=== PATIENT | male | born 1975 | race Caucasian/White ===

== ENCOUNTER 2016-09-03 19:40 | Emergency (ER) | payer OTHER ==
[2016-09-03] MEDS ORDERED: NORMAL SALINE INJ/PF 0.9% 10 ML SDV IV ONE (20:28)
[2016-09-03] MEDS ORDERED: HYOSCYAMINE SULFATE 0.125 MG TABLET PO ONE (20:28)
--- NOTE | 2016-09-03 20:28 | ER Document Report ---
ED Medical Screen (RME) - General Stated Complaint: ABDOMINAL PAIN Notes: Right upper quadrant pain increases after food. He'll another hospital about 6 weeks ago and was told that he had gallbladder disease and needed to follow-up with the surgeon and has been working on obtaining that. I greeted and performed a rapid initial assessment of this patient. Comprehensive ED assessment and evaluation of the patient, analysis of test results and completion of the medical decision making process will be conducted by additional ED providers. TRAVEL OUTSIDE OF THE [place] IN LAST 30 DAYS: No - Related Data Allergies/Adverse Reactions: lidocaine [Lidocaine] Allergy (Verified 03/29/12 15:00) procaine HCl [From Novocain] Allergy (Verified 03/29/12 15:00) Past Medical History Neurological Medical History: Reports: Hx Migraine Past Surgical History: Reports: Hx Orthopedic Surgery - right knee - Immunizations Hx Diphtheria, Pertussis, Tetanus Vaccination: Yes
[2016-09-03 21:32] LABS: ABSOLUTE BASOPHILS # (AUTO) 0.1 10^3/uL (0.0-0.2); ABSOLUTE EOSINOPHILS # (AUTO) 0.3 10^3/uL (0.0-0.6); ABSOLUTE LYMPHOCYTES (AUTO) 2.6 10^3/uL (0.5-4.7); ABSOLUTE MONOCYTES (AUTO) 1.2 10^3/uL (0.1-1.4); ABSOLUTE NEUT (AUTO) 9.1 10^3/uL (1.7-8.2); BASOPHILS % (AUTO) 0.5 % (0-2); EOSINOPHILS % (AUTO) 2.2 % (0-6); HEMATOCRIT 47.5 % (37.9-51.0); HEMOGLOBIN 15.3 g/dL (13.5-17.0); HGB HCT DIFFERENCE -1.6; LYMPHOCYTES % (AUTO) 19.5 % (13-45); MEAN CORPUSCULAR HEMOGLOBIN 27.6 pg (27.0-33.4); MEAN CORPUSCULAR HGB CONC 32.3 g/dL (32.0-36.0); MEAN CORPUSCULAR VOLUME 85 fl (80-97); MONOCYTES % (AUTO) 9.3 % (3-13); RED BLOOD COUNT 5.56 10^6/uL (4.35-5.55); RED CELL DISTRIBUTION WIDTH 14.2 % (11.5-14.0); SEGMENTED NEUTROPHILS % (AUTO) 68.5 % (42-78); WHITE BLOOD COUNT 13.4 10^3/uL (4.0-10.5)
[2016-09-03 21:55] LABS: ALANINE AMINOTRANSFERASE 36 U/L (21-72); ALBUMIN 4.3 g/dL (3.5-5.0); ALKALINE PHOSPHATASE 90 U/L (38-126); ANION GAP 11 (5-19); ASPARTATE AMINO TRANSFERASE 20 U/L (17-59); BILIRUBIN,TOTAL 0.7 mg/dL (0.2-1.3); BLOOD UREA NITROGEN 10 mg/dL (7-20); CALCIUM 9.3 mg/dL (8.4-10.2); CARBON DIOXIDE 28 mmol/L (22-30); CHLORIDE 102 mmol/L (98-107); CREATININE RESULT 0.98 mg/dL (0.52-1.25); GLUCOSE 73 mg/dL (75-110); LIPASE 18.1 U/L (23-300); POTASSIUM 4.6 mmol/L (3.6-5.0); SODIUM 140.6 mmol/L (137-145); TOTAL PROTEIN 7.2 g/dL (6.3-8.2)
[2016-09-03 23:33] LABS: APPEARANCE,URINE CLEAR; BILIRUBIN,URINE NEGATIVE (NEGATIVE); GLUCOSE, URINE NEGATIVE (NEGATIVE); KETONES,URINE NEGATIVE (NEGATIVE); LEUKOCYTE ESTERASE,URINE NEGATIVE (NEGATIVE); NITRITE,URINE NEGATIVE (NEGATIVE); PROTEIN,URINE NEGATIVE (NEGATIVE); UROBILINOGEN,URINE NEGATIVE mg/dL (<2.0)
--- NOTE | 2016-09-04 01:43 | ER Document Report ---
ED General - General Chief Complaint: Abdominal Pain Stated Complaint: ABDOMINAL PAIN Notes: Patient is a 40-year-old male with past mental history of morbid obesity and hypertension who presents with several months of ongoing right upper quadrant abdominal pain. Does described as intermittent, dull, aching pain. It has been gradually worsening since onset. Worsened by eating food. Nothing improves the pain. States that this pain has been evaluated by an outpatient general surgeon and treated to gallstones but he has not been able to be scheduled for a cholecystectomy. No history of similar symptoms in the past prior to the last 2 months. He denies any associated vomiting, chest pain or shortness of breath. Notes that he has intermittent nonbloody diarrhea. No prior history of abdominal surgeries. TRAVEL OUTSIDE OF THE [place] IN LAST 30 DAYS: No - Related Data Allergies/Adverse Reactions: lidocaine [Lidocaine] Allergy (Verified 03/29/12 15:00) procaine HCl [From Novocain] Allergy (Verified 03/29/12 15:00) Past Medical History - General Information source: Patient - Social History Smoking Status: Current Every Day Smoker Chew tobacco use (# tins/day): No Frequency of alcohol use: Rare Drug Abuse: None Family History: Reviewed & Not Pertinent Patient has suicidal ideation: No Neurological Medical History: Reports: Hx Migraine Renal/ Medical History: Denies: Hx Peritoneal Dialysis Past Surgical History: Reports: Hx Orthopedic Surgery - right knee - Immunizations Hx Diphtheria, Pertussis, Tetanus Vaccination: Yes Review of Systems - Review of Systems Notes: Constitutional: Negative for fever. HENT: Negative for sore throat. Eyes: Negative for visual changes. Cardiovascular: Negative for chest pain. Respiratory: Negative for shortness of breath. Gastrointestinal: Positive for abdominal pain and vomiting Genitourinary: Negative for dysuria. Musculoskeletal: Negative for back pain. Skin: Negative for rash. Neurological: Negative for headaches, weakness or numbness. 10 point ROS negative except as marked above and in HPI. Physical Exam - Vital signs Vitals: Temp Pulse Resp BP Pulse Ox 98.4 F 86 20 164/98 H 98 09/03/16 20:28 09/03/16 20:28 09/03/16 20:28 09/03/16 20:28 09/03/16 20:28 Interpretation: Hypertensive Notes: PHYSICAL EXAMINATION: GENERAL: Well-appearing, well-nourished and in no acute distress. HEAD: Atraumatic, normocephalic. EYES: Pupils equal round and reactive to light, extraocular movements intact, sclera anicteric, conjunctiva are normal. ENT: nares patent, oropharynx clear without exudates. Moist mucous membranes. NECK: Normal range of motion, supple without lymphadenopathy LUNGS: Breath sounds clear to auscultation bilaterally and equal. No wheezes rales or rhonchi. HEART: Regular rate and rhythm without murmurs ABDOMEN: Soft, mild right upper quadrant tenderness to palpation with negative Brown's, normoactive bowel sounds. No guarding, no rebound. No masses appreciated. EXTREMITIES: Normal range of motion, no pitting or edema. No cyanosis. NEUROLOGICAL: No focal neurological deficits. Moves all extremities spontaneously and on command. PSYCH: Normal mood, normal affect. SKIN: Warm, Dry, normal turgor, no rashes or lesions noted. Course - Re-evaluation Re-evalutation: 09/04/16 01:38 Patient presents clinical history and exam most consistent with symptomatic cholelithiasis. Patient has had progressive worsening of right upper quadrant pain worsened by eating but has been able to tolerate some oral intake. Vitals at time of arrival and on multiple reassessments remain non-concerning. Laboratories do not demonstrate a significant leukocytosis, LFT derangements, elevated bilirubin, alkaline phosphatase, or an elevated lipase. A right upper quadrant ultrasound does not demonstrate evidence of acute cholecystitis. This case was discussed with the surgeon cashier and salesperson who has agreed that outpatient follow-up is the most appropriate course of action at this time. Patient is unable to tolerate oral intake.At this time will discharge with return precautions and follow-up recommendations. Verbal discharge instructions given a the bedside and opportunity for questions given. Medication warnings reviewed. Patient is in agreement with this plan and has verbalized understanding of return precautions and the need for primary care follow-up in the next 24-72 hours. - Vital Signs Vital signs: Temp Pulse Resp BP Pulse Ox 98.4 F 86 20 164/98 H 98 09/03/16 20:28 09/03/16 20:28 09/03/16 20:28 09/03/16 20:28 09/03/16 20:28 - Laboratory Result Diagrams: 09/03/16 20:45 09/03/16 20:45 Laboratory results interpreted by me: 09/03/16 09/03/16 09/03/16 20:45 20:45 23:01 WBC 13.4 H RBC 5.56 H RDW 14.2 H Absolute Neutrophils 9.1 H Glucose 73 L Lipase 18.1 L Urine Blood SMALL H Discharge - Discharge Clinical Impression: Symptomatic cholelithiasis Condition: Good Disposition: HOME, SELF-CARE Additional Instructions: You were seen for pain in your abdomen that is likely related to gallstones. Your work-up today does not show any signs that you need to have your gallbladder removed tonight. However, you will likely need surgery as an outpatient in the coming weeks. Please contact the surgery clinic in the next 24 -48 hours to discuss the need for further evaluation and consideration of surgery. Return to the ED immediately if you develop worsening pain, persistent vomiting, become unable to tolerate fluids, have a fever of >1004, or any other symptoms that are concerning to you. Referrals: MADHURI BANKS MD [ACTIVE STAFF] - Follow up tomorrow
[2016-09-04 02:44] VITALS: BP 142/92
== END 2016-09-04 02:00 | disposition home or self-care (01) ==
LOC: ER 19:40
DX: K80.80 Other cholelithiasis without obstruction (principal); R10.11 Right upper quadrant pain; R11.11 Vomiting without nausea; F17.200 Nicotine dependence, unspecified, uncomplicated; E66.01 Morbid (severe) obesity due to excess calories
CPT/HCPCS: 99284; 96360; 36415; 83690; 85025; 80053; 81001; 74022; 76705; J3490 ×2

== ENCOUNTER 2016-10-25 12:47 | Day surgery (SDC) | payer OTHER ==
[2016-10-18 10:00] LABS: HEMATOCRIT 45.3 % (37.9-51.0); HEMOGLOBIN 15.2 g/dL (13.5-17.0); HGB HCT DIFFERENCE 0.3; MEAN CORPUSCULAR HEMOGLOBIN 28.1 pg (27.0-33.4); MEAN CORPUSCULAR HGB CONC 33.6 g/dL (32.0-36.0); MEAN CORPUSCULAR VOLUME 84 fl (80-97); WHITE BLOOD COUNT 10.2 10^3/uL (4.0-10.5)
[2016-10-18 10:27] LABS: ALANINE AMINOTRANSFERASE 44 U/L (21-72); ALBUMIN 4.1 g/dL (3.5-5.0); ALKALINE PHOSPHATASE 89 U/L (38-126); AMYLASE 30 U/L (30-110); ANION GAP 9 (5-19); ASPARTATE AMINO TRANSFERASE 23 U/L (17-59); BILIRUBIN,TOTAL 0.5 mg/dL (0.2-1.3); BLOOD UREA NITROGEN 12 mg/dL (7-20); CALCIUM 9.6 mg/dL (8.4-10.2); CARBON DIOXIDE 28 mmol/L (22-30); CHLORIDE 103 mmol/L (98-107); CREATININE RESULT 0.95 mg/dL (0.52-1.25); GLUCOSE 85 mg/dL (75-110); POTASSIUM 4.3 mmol/L (3.6-5.0); SODIUM 139.7 mmol/L (137-145); TOTAL PROTEIN 7.1 g/dL (6.3-8.2)
--- NOTE | 2016-10-19 11:12 | EKG REPORT ---
SEVERITY:- NORMAL ECG - SINUS RHYTHM : Confirmed by: Anna Jimenez 19-Oct-2016 11:12:10
[~2016-10-25 12:47] MED LIST: ACETAMINOPHEN 325 MG TABLET PO PRN; CEFAZOLIN 1 GM/D5W RTU 1 GM/50 ML RTUPB IV PRN; DEXAMETHASONE SOD PHOSPHATE INJ 4 MG/1 ML VIAL ONE; GLYCOPYRROLATE INJ 0.4 MG/2 ML VIAL ONE; LACTATED RINGERS 1000 ML IV PRN; ONDANSETRON HCL INJ/PF 4 MG/2 ML SDV ONE; SUCCINYLCHOLINE CHLORIDE INJ 200 MG/10 ML VIAL ONE
[2016-10-25] MEDS ORDERED: HYDROMORPHONE HCL INJ/PF 2 MG/ML AMPULE ONE (13:41)
[2016-10-25] MEDS ORDERED: FENTANYL CITRATE INJ/PF 100 MCG/2 ML AMPUL ONE ×3 (13:42)
[2016-10-25] MEDS ORDERED: MIDAZOLAM 2 MG/2 ML INJ ONE (13:42)
[2016-10-25] MEDS ORDERED: PROPOFOL INJ 200 MG/20 ML VIAL IV ONE (13:43)
[2016-10-25] MEDS ORDERED: EPHEDRINE SULFATE INJ 50 MG/1 ML AMPULE ONE (15:16)
[2016-10-25] MEDS ORDERED: DIPHENHYDRAMINE HCL 50 MG/ML VIAL IV PRN (15:36)
[2016-10-25] MEDS ORDERED: PROMETHAZINE HCL INJ 25 MG/1 ML VIAL IV PRN (15:36)
[2016-10-25] MEDS ORDERED: FENTANYL CITRATE INJ/PF 100 MCG/2 ML AMPUL IV PRN ×3 (15:36)
[2016-10-25] MEDS ORDERED: ACETAMINOPHEN 100 ML IV ONE (15:40)
--- NOTE | 2016-10-25 16:17 | Operative Report ---
Operative Report DATE OF SURGERY: 10/25/16 PREOPERATIVE DIAGNOSIS: Symptomatic cholelithiasis with cholecystitis POSTOPERATIVE DIAGNOSIS: Same OPERATION: Laparoscopic cholecystectomy SURGEON: MADHURI PENALOZA LATHE SET UP PERSON: RAMA MORRELL ANESTHESIA: GA TISSUE REMOVED OR ALTERED: Gallbladder with stones COMPLICATIONS: None ESTIMATED BLOOD LOSS: scant INTRAOPERATIVE FINDINGS: See below PROCEDURE: After obtaining informed consent, the patient was taken to the operating room. General Anesthesia was induced; the arms were extended, and the abdomen was exposed, and prepped and draped in a sterile fashion. Instrumentation was set up for laparoscopic cholecystectomy. Surgical plan and surgical timeout were conducted. A vertical incision was made above the umbilicus, and a verres needle was inserted uneventfully into the peritoneal cavity. Pneumoperitoneum was established. The verres needle was removed and a 5 mm trocar was inserted and a 5 mm flexible laparoscope was inserted. Visualization of the peritoneal cavity confirmed safe uneventful entry. Under direct visualization 3 additional 5 mm ports were established, one in the subxiphoid position and second in the subcostal position. Visualization of the hepatobiliary anatomy revealed no anatomic variations. A grasper was placed on the fundus of the gallbladder and the gallbladder is elevated over the right surface of the liver; a second grasper was used to grasp the infundibulum of the gallbladder. The neck of the gallbladder and junction with the cystic duct was dissected out. The Cystic artery was in its usual location medial and cephalad to the cystic duct. The cystic artery was surrounded with a right angle clamp, clipped twice proximally and divided with laparoscopic scissors. We now opened the triangle of Calot by dividing the peritoneal reflection on both the medial and lateral sides of the cystic duct infundibular junction. The critical view was obtained. We now milked the cystic duct of any possible stones, clipped the cystic duct approximately 2 times once distally and divided with scissors. The gallbladder was now removed from the undersurface of the liver using hook cautery dissection. Graspers were repositioned and the gallbladder was removed uneventfully from the abdominal cavity through the super umbilical port site incision. The specimen was examined, then passed off to pathology for permanent analysis. This was a very large gallbladder with extensive cholelithiasis. We returned to the peritoneal cavity check for bleeding, and evidence of bile leak, and there was none. We Confirmed satisfactory placement of clips on cystic duct and cystic artery were secured . At this point we felt the operation was complete. The subcutaneous tissue was then anesthetized with quarter percent Marcaine Sponge and needle counts are correct. The fascial defect above the umbilicus was closed with a #1 PDS suture using the disposable suture passer PERFORMED laparoscopically. All ports removed under direct visualization pneumoperitoneum evacuated, and 5 mm port wounds closed with 3-0 Vicryl suture, benzoin and Steri-Strips. The patient was extubated, and taken to the recovery room in stable condition. The physician senior agricultural assistant, Ms. Morrell, provided assistance during this case by: Assisting and port insertion, retracting tissue, instillation of local anesthesia and closure of skin incisions.
--- NOTE | 2016-10-25 16:23 | PDOC DISCHARGE SUMMARY ---
Discharge Summary (SDC) - Discharge Final Diagnosis: Cholecystitis with cholelithiasis. Date of Surgery: 10/25/16 Discharge Date: 10/25/16 Condition: Stable Treatment or Instructions: [facility] [address] [place] [id number] Discharge Instructions: Laparoscopic Surgery 1. General Information: a. DO NOT DRIVE a car or operate dangerous machinery for 3-4 days or while taking narcotic pain pills. b. DO NOT consume alcohol, tranquilizers, sleeping medications or any non- prescribed medications for 24 hours unless approved by your doctor or as long as taking narcotic prescription medications. c. DO NOT make important decisions or sign any important papers for the first 24 hours after surgery. d. When discharged home the same day of surgery have a responsible person with you for the first night. 2. Activity Restrictions: 4 weeks. a. NO heavy lifting, straining abdominal muscles, bending over a lot, yard work, house work, or sports for [address] for 3-4 days or while taking __Percocet__ . c. It is fine to go for walks, up and down steps, ride in a car. d. Elevate your head when sleeping/resting. 3. Treatment: a. You may shower 24 hours after surgery, no baths or swimming for 2 weeks. Remove band-aids or dressings before shower but leave paper strips (steri-strips ) on the skin to fall off on their own. If still on at postoperative visit they will be removed then. b. Drainage of fluid or blood is not unusual from an incision. If occurs, you can clean with peroxide and cotton ball daily and cover with dry gauze until the wound seals. c. If a lot of bleeding occurs, you can hold pressure with a gauze or cloth over the site for 10 minutes and it will usually stop. If bleeding continues you will need to call for possible evaluation in office or emergency room. 4. Medications: a. __Percocet__ may be taken for pain as needed, one tab every 6 hours. Stop the narcotic when able since you cannot take it and drive, and they cause constipation. You may switch to plain Tylenol, Advil or Aleve as you transition from the narcotic. Many adults find good pain relief with Advil 600-800 mg three times a day with meals. This can cause indigestion, ulcers, and kidney problems with long-term use. b. You should resume all normal medications unless a change is specified by your doctors. 5. Diet: Begin with clear liquids and may progress to your normal diet if not nauseated. No high fat, high protein foods the day of surgery. 6. The following may occur after laparoscopic surgery: a. Shoulder or upper back ache from retained gas that should resolve in 1-2 days b. Soreness and bruising at incision sites will resolve with time. c. Scrotal swelling (labia in women) and bruising is often seen after hernia surgery. d. Sore throat e. Fatigue may last days to weeks. f. Difficulty urinating may occur and may need to come into emergency room for urinary catheter placement. 7. Notify Physician If: a. Worsening or pain not improved with pain medication b. Persistent nausea and vomiting c. Fever above 101 d. Persistent bleeding or swelling at operative site e. Unable to urinate and uncomfortable bladder 6-8 hours after surgery 8..Follow Up Care: a. Schedule a follow up appointment with your doctor for 2 weeks. In the event of any postoperative problems or questions or you may call the office during business hours or the On-Call physician evenings and weekends at [facility]. [facility] I understand the instructions for my postoperative care as described above and a copy has been given to me. Patient/Significant Other Witness Date Prescriptions: Oxycodone HCl/Acetaminophen [Percocet 5-325 mg Tablet] 1 tab PO Q6 PRN #20 tab PRN Reason: Discharge Diet: As Tolerated Discharge Activity: No Lifting Over 10 Pounds, No Lifting/Push/Pulling, Walk Frequently Report the Following to Your Physician Immediately: Fever over 101 Degrees, Unusual Bleeding, Redness, Swelling, Warmth, Drainage-Foul Smelling
[2016-10-25] MEDS ORDERED: OXYCODONE-ACETAMINOPHEN 5-325 MG TABLET PO PRN (17:27)
[2016-10-25] MEDS ORDERED: OXYCODONE-ACETAMINOPHEN 5-325 MG TABLET ONE (18:17)
[2016-10-25 19:27] VITALS: BP 177/125
== END 2016-10-25 19:24 | disposition home or self-care (01) ==
LOC: OROUT 12:47
PROVIDERS: ATTEND Surgery
PROC: 0FT44ZZ Resection of Gallbladder, Percutaneous Endoscopic Approach (ICD-10-PCS; principal; 2016-10-25 15:00)
DX: K80.80 Other cholelithiasis without obstruction (principal); K80.10 Calculus of gallbladder with chronic cholecystitis without obstruction; K21.9 Gastro-esophageal reflux disease without esophagitis; G47.33 Obstructive sleep apnea (adult) (pediatric); G43.909 Migraine, unspecified, not intractable, without status migrainosus; I10 Essential (primary) hypertension; F17.210 Nicotine dependence, cigarettes, uncomplicated; Z88.4 Allergy status to anesthetic agent; E66.9 Obesity, unspecified; Z68.41 Body mass index [BMI] 40.0-44.9, adult; E66.01 Morbid (severe) obesity due to excess calories
CPT/HCPCS: 93005; 36415; 82150; 85027; 80076; 80048; 88304 ×2; 93010; 47562; J2250; J0690; J1100; J3490; J3010; J1170; J0330; J2405; J2704; J0131; 790

== ENCOUNTER 2017-04-09 17:37 | Observation (INO) | payer OTHER ==
[2017-04-09] MEDS ORDERED: ASPIRIN 81 MG TABLET, CHEWABLE PO ONE (17:46)
[2017-04-09] MEDS ORDERED: ACETAMINOPHEN 325 MG TABLET PO ONE (18:03)
[2017-04-09] MEDS ORDERED: NITROGLYCERIN 2% OINTMENT 1 GM PACKET TP ONE (18:03)
--- NOTE | 2017-04-09 18:05 | ER Document Report ---
ED General - General Stated Complaint: CHEST PAIN Time Seen by Provider: 04/09/17 17:49 Mode of Arrival: Medic Information source: Patient Notes: This is a 41-year-old man with a history of pedal edema, hypertension, 1 pack per day smoking who presents to the emergency room with retrosternal chest pain radiating down the right arm. Patient works for [employer] and they had treated him with aspirin and nitroglycerin. The patient states his pain went from 5/5-0 over the 5 with nitroglycerin. His blood pressure at the scene was 195/128. Currently states his pain is at a 0. He does report that he was short of breath at the time. TRAVEL OUTSIDE OF THE [place] IN LAST 30 DAYS: No - HPI Onset: This afternoon Onset/Duration: Gradual Quality of pain: No pain, Dull Severity: Moderate Pain Level: 5 Associated symptoms: Chest pain, Shortness of breath. denies: Fever Exacerbated by: Denies Relieved by: Denies Similar symptoms previously: No Recently seen / treated by doctor: No - Related Data Allergies/Adverse Reactions: lidocaine [Lidocaine] Allergy (Severe, Verified 10/18/16 09:54) Hives procaine HCl [From Novocain] Allergy (Severe, Verified 10/18/16 09:54) Hives "-miguel" family Allergy (Uncoded 10/25/16 13:01) itching, swelling Past Medical History - General Information source: Patient - Social History Smoking Status: Current Every Day Smoker Cigarette use (# per day): Yes Chew tobacco use (# tins/day): No Smoking Education Provided: No Frequency of alcohol use: None Drug Abuse: None Lives with: Family Family History: CAD - Patient's mother of a heart attack at age 49 Patient has suicidal ideation: No Patient has homicidal ideation: No - Past Medical History Cardiac Medical History: Reports: Hx Hypertension - in past-no meds Denies: Hx Coronary Artery Disease, Hx Heart Attack Pulmonary Medical History: Denies: Hx Asthma, Hx Bronchitis, Hx COPD, Hx Pneumonia Neurological Medical History: Reports: Hx Migraine. Denies: Hx Cerebrovascular Accident, Hx Seizures Renal/ Medical History: Denies: Hx Peritoneal Dialysis Musculoskeltal Medical History: Denies Hx Arthritis Past Surgical History: Reports: Hx Orthopedic Surgery - right knee - Immunizations Hx Diphtheria, Pertussis, Tetanus Vaccination: Yes Review of Systems - Review of Systems Constitutional: denies: Chills, Fever EENT: No symptoms reported Cardiovascular: See HPI Respiratory: No symptoms reported Gastrointestinal: No symptoms reported Genitourinary: No symptoms reported Male Genitourinary: No symptoms reported Musculoskeletal: No symptoms reported Skin: No symptoms reported Hematologic/Lymphatic: No symptoms reported Neurological/Psychological: No symptoms reported Physical Exam - Vital signs Vitals: Resp Pulse Ox 25 H 99 04/09/17 17:48 04/09/17 17:48 Notes: Physical exam: GENERAL: 41-year-old man, alert and oriented 3, no acute distress HEAD: Atraumatic, normocephalic. EYES: Pupils equal round and reactive to light, extraocular movements intact, sclera anicteric, conjunctiva are normal. ENT: TMs normal, nares patent, oropharynx clear without exudates. Moist mucous membranes. NECK: Normal range of motion, supple without ovious mass or JVD. LUNGS: Breath sounds clear to auscultation bilaterally and equal. No wheezes rales or rhonchi. HEART: Regular rate and rhythm without murmurs, rubs or gallops. ABDOMEN: Soft, normoactive bowel sounds. No tenderness to palpation. No guarding, no rebound. No masses appreciated. EXTREMITIES: 2+ edema bilaterally NEUROLOGICAL: Cranial nerves II through XII grossly intact. Normal speech, moving all extremities. PSYCH: Normal mood, normal affect. SKIN: Warm, Dry, normal turgor, no rashes or lesions noted. Course - Vital Signs Vital signs: Temp Pulse Resp BP Pulse Ox 97.8 F 15 166/105 H 96 04/09/17 18:00 04/09/17 21:44 04/09/17 22:01 04/09/17 22:01 - Laboratory Result Diagrams: 04/09/17 18:00 04/09/17 18:00 - Diagnostic Test Radiology reviewed: Image reviewed, Reports reviewed - Chest x-ray shows cardiomegaly - EKG Interpretation by Vt Rate: Normal Rhythm: NSR - EKG shows normal sinus rhythm with a ventricular rate of 74, no acute ST-T wave changes. Discharge - Discharge Clinical Impression: Chest pain Condition: Stable Disposition: ADMITTED OBSERVATION Admitting Provider: Hospitalist - Dr. Lozada Unit Admitted: Telemetry Referrals: RIA TALLEY MD [Primary Care Provider] - Follow up as needed
[2017-04-09] MEDS ORDERED: FUROSEMIDE INJ/PF 40 MG/4 ML SDV IV ONE (18:06)
--- NOTE | 2017-04-09 18:13 | RADIOLOGY REPORT (SQ) ---
EXAM DESCRIPTION: CHEST SINGLE VIEW COMPLETED DATE/TIME: 04/09/2017 5:58 pm REASON FOR STUDY: cp COMPARISON: 09/08/2009 NUMBER OF VIEWS: One view. TECHNIQUE: Single frontal radiographic view of the chest acquired. LIMITATIONS: None. FINDINGS: LUNGS AND PLEURA: Peribronchial cuffing and interstitial changes. No consolidation, pneumo thorax or effusion. MEDIASTINUM AND HILAR STRUCTURES: No masses. Contour normal. HEART AND VASCULAR STRUCTURES: Heart normal in size. Normal vasculature. BONES: No acute findings. HARDWARE: None in the chest. OTHER: No other significant finding. IMPRESSION: REACTIVE AIRWAY DISEASE VERSUS VIRAL SYNDROME. NO CONSOLIDATION. TECHNICAL DOCUMENTATION: JOB ID: [id number] [employer]- All Rights Reserved
--- NOTE | 2017-04-09 18:14 | EKG REPORT ---
SEVERITY:- NORMAL ECG - SINUS RHYTHM : Confirmed by: Sergio Fish MD 09-Apr-2017 18:13:59
[2017-04-09 18:18] LABS: ABSOLUTE BASOPHILS # (AUTO) 0.1 10^3/uL (0.0-0.2); ABSOLUTE EOSINOPHILS # (AUTO) 0.3 10^3/uL (0.0-0.6); ABSOLUTE LYMPHOCYTES (AUTO) 2.5 10^3/uL (0.5-4.7); ABSOLUTE MONOCYTES (AUTO) 0.8 10^3/uL (0.1-1.4); ABSOLUTE NEUT (AUTO) 6.1 10^3/uL (1.7-8.2); HEMATOCRIT 45.8 % (37.9-51.0); HEMOGLOBIN 15.3 g/dL (13.5-17.0); HGB HCT DIFFERENCE 0.1; LYMPHOCYTES % (AUTO) 25.7 % (13-45); MEAN CORPUSCULAR HEMOGLOBIN 28.4 pg (27.0-33.4); MEAN CORPUSCULAR HGB CONC 33.3 g/dL (32.0-36.0); MEAN CORPUSCULAR VOLUME 85 fl (80-97); MONOCYTES % (AUTO) 7.9 % (3-13); RED BLOOD COUNT 5.38 10^6/uL (4.35-5.55); RED CELL DISTRIBUTION WIDTH 13.7 % (11.5-14.0); SEGMENTED NEUTROPHILS % (AUTO) 62.4 % (42-78); WHITE BLOOD COUNT 9.9 10^3/uL (4.0-10.5)
[2017-04-09 18:35] LABS: ALANINE AMINOTRANSFERASE 35 U/L (21-72); ALBUMIN 4.1 g/dL (3.5-5.0); ALKALINE PHOSPHATASE 94 U/L (38-126); ANION GAP 12 (5-19); ASPARTATE AMINO TRANSFERASE 18 U/L (17-59); BILIRUBIN,DIRECT 0.4 mg/dL (0.0-0.4); BILIRUBIN,TOTAL 0.5 mg/dL (0.2-1.3); BLOOD UREA NITROGEN 12 mg/dL (7-20); CALCIUM 9.8 mg/dL (8.4-10.2); CARBON DIOXIDE 27 mmol/L (22-30); CHLORIDE 102 mmol/L (98-107); CREATINE KINASE 69 U/L (55-170); CREATININE RESULT 0.98 mg/dL (0.52-1.25); GLUCOSE 99 mg/dL (75-110); POTASSIUM 4.2 mmol/L (3.6-5.0); TOTAL PROTEIN 6.9 g/dL (6.3-8.2)
[2017-04-09 18:46] LABS: CREATINE KINASE MB 0.52 ng/mL (<4.55)
[2017-04-09 18:47] LABS: TROPONIN I < 0.012 ng/mL
[2017-04-09 22:29] LABS: TROPONIN I < 0.012 ng/mL
[2017-04-09] MEDS ORDERED: LACTULOSE SYRUP 20 GM/30 ML UDCUP PO ONE (22:39)
[2017-04-09] MEDS ORDERED: ENALAPRIL MALEATE 5 MG TABLET PO ONE (23:19)
[2017-04-09] MEDS ORDERED: ACETAMINOPHEN 325 MG TABLET PO PRN (23:58)
[2017-04-10 00:05] LABS: CREATINE KINASE MB 0.46 ng/mL (<4.55)
[2017-04-10 00:08] LABS: APPEARANCE,URINE CLEAR; BILIRUBIN,URINE NEGATIVE (NEGATIVE); GLUCOSE, URINE NEGATIVE (NEGATIVE); KETONES,URINE NEGATIVE (NEGATIVE); LEUKOCYTE ESTERASE,URINE NEGATIVE (NEGATIVE); NITRITE,URINE NEGATIVE (NEGATIVE); PROTEIN,URINE NEGATIVE (NEGATIVE); URINE SPECIFIC GRAVITY 1.008; UROBILINOGEN,URINE NEGATIVE mg/dL (<2.0)
[2017-04-10 04:10] LABS: CHOLESTEROL 151.58 mg/dL (0-200); CREATINE KINASE 56 U/L (55-170); Direct HDL 27 mg/dL (>40); TRIGLYCERIDES 237 mg/dL (<150)
[2017-04-10 04:21] LABS: DIRECT LDL 86 mg/dL (<100)
[2017-04-10 04:26] LABS: VLDL CHOLESTEROL 47.4 mg/dL (10-31)
--- NOTE | 2017-04-10 04:35 | PDOC H&P ---
History of Present Illness Admission Date/PCP: 04/09/17 23:33 RIA TALLEY MD Patient complains of: Retrosternal chest pain History of Present Illness: KARLI APODACA is a 41 year old male with a past medical history of morbid obesity, obstructive sleep apnea, venous stasis and tobacco dependence. He has been in his usual state of health until approximately 30 minutes prior to presentation in the emergency room with an abrupt onset of 5 out of 5, nonradiating, sharp, retrosternal chest pain associated with shortness of breath occurred while standing up from his desk to go home from work. EMS was called and revealed a blood pressure of 210/124, he received aspirin and sublingual nitro and brought to the emergency room for evaluation where his pain was significantly reduced. Patient denies previous diagnosis of hypertension, exceptional anxiety, previous episode or new medication. His workup is otherwise unremarkable he is referred to the hospitalist for admission. Patient admits to noncompliance with CPAP secondary to financial barriers. Past Medical History Cardiac Medical History: Denies: Coronary Artery Disease, Myocardial Infarction Pulmonary Medical History: Denies: Asthma, Bronchitis, Chronic Obstructive Pulmonary Disease (COPD), Pneumonia Neurological Medical History: Reports: Migraine Denies: Seizures Endocrine Medical History: Reports: Obesity Musculoskeltal Medical History: Denies: Arthritis Psychiatric Medical History: Reports: Tobacco Dependency Hematology: Denies: Anemia Past Surgical History Past Surgical History: Reports: Cholecystectomy, Orthopedic Surgery - right knee Social History Information Source: Patient Lives with: Family Smoking Status: Current Every Day Smoker Cigarettes Packs Per Day: 1 Number of Years Smokin Frequency of Alcohol Use: None Hx Recreational Drug Use: No Drugs: None Hx Prescription Drug Abuse: No - Advance Directive Resuscitation Status: Full Code Family History Family History: CAD - Patient's mother of a heart attack at age 49, DM, Hyperlipidemia Parental Family History Reviewed: Yes Children Family History Reviewed: Yes Sibling(s) Family History Reviewed.: Yes Medication/Allergy Home Medications: Oxycodone HCl/Acetaminophen [Percocet 5-325 mg Tablet] 1 tab PO Q6 PRN #20 tab 10/25/16 Allergies/Adverse Reactions: lidocaine [Lidocaine] Allergy (Severe, Verified 10/18/16 09:54) Hives procaine HCl [From Novocain] Allergy (Severe, Verified 10/18/16 09:54) Hives "-miguel" family Allergy (Uncoded 10/25/16 13:01) itching, swelling Review of Systems Constitutional: PRESENT: fatigue, weight gain - 60 pounds gained in the last 12 months., other - Daytime sleepiness. ABSENT: chills, fever(s), headache(s), weight loss Eyes: ABSENT: visual disturbances Ears: ABSENT: hearing changes Cardiovascular: ABSENT: chest pain, dyspnea on exertion, edema, orthropnea, palpitations Respiratory: ABSENT: cough, hemoptysis Gastrointestinal: ABSENT: abdominal pain, constipation, diarrhea, hematemesis, hematochezia, nausea, vomiting Genitourinary: ABSENT: dysuria, hematuria Musculoskeletal: ABSENT: joint swelling Integumentary: ABSENT: rash, wounds Neurological: ABSENT: abnormal gait, abnormal speech, confusion, dizziness, focal weakness, syncope Psychiatric: ABSENT: anxiety, depression, homidical ideation, suicidal ideation Endocrine: ABSENT: cold intolerance, heat intolerance, polydipsia, polyuria Hematologic/Lymphatic: ABSENT: easy bleeding, easy bruising Physical Exam Vital Signs: Temp Pulse Resp BP Pulse Ox 97.7 F 65 20 142/67 H 96 04/10/17 04:00 04/10/17 04:00 04/10/17 04:00 04/10/17 04:00 04/10/17 04:00 Intake & Output 04/08/17 04/09/17 04/10/17 11:59 11:59 11:59 Weight 174.2 kg General appearance: PRESENT: no acute distress, cooperative, morbidly obese Head exam: PRESENT: atraumatic, normocephalic Eye exam: PRESENT: conjunctiva pink, EOMI, PERRLA. ABSENT: scleral icterus Ear exam: PRESENT: normal external ear exam Mouth exam: PRESENT: moist, tongue midline Neck exam: ABSENT: carotid bruit, JVD, lymphadenopathy, thyromegaly Respiratory exam: PRESENT: clear to auscultation zack. ABSENT: rales, rhonchi, wheezes Cardiovascular exam: PRESENT: RRR. ABSENT: diastolic murmur, rubs, systolic murmur Pulses: PRESENT: normal dorsalis pedis pul Vascular exam: PRESENT: normal capillary refill GI/Abdominal exam: PRESENT: normal bowel sounds, soft. ABSENT: distended, guarding, mass, organolmegaly, rebound, tenderness Rectal exam: PRESENT: deferred Extremities exam: PRESENT: tenderness, +2 edema Neurological exam: PRESENT: alert, awake, oriented to person, oriented to place , oriented to time, oriented to situation, CN II-XII grossly intact. ABSENT: motor sensory deficit Psychiatric exam: PRESENT: appropriate affect, normal mood. ABSENT: homicidal ideation, suicidal ideation Skin exam: PRESENT: dry, intact, warm. ABSENT: cyanosis, rash Results Laboratory Results: 04/09/17 23:54 Urine Color STRAW Urine Appearance CLEAR Urine pH 6.0 Ur Specific [place] 1.008 Urine Protein NEGATIVE Urine Glucose (UA) NEGATIVE Urine Ketones NEGATIVE Urine Blood NEGATIVE Urine Nitrite NEGATIVE Ur Leukocyte Esterase NEGATIVE Urine WBC (Auto) 0 Urine RBC (Auto) 1 Impressions: Chest X-Ray 04/09/17 17:46 IMPRESSION: REACTIVE AIRWAY DISEASE VERSUS VIRAL SYNDROME. NO CONSOLIDATION. Assessment & Plan - Diagnosis (1) Chest pain Is this a current diagnosis for this admission?: Yes Plan: chest pain the patient's pain is atypical there are multiple risk factors for coronary artery disease and subsequently will observe and evaluation of acute coronary syndrome versus coronary artery disease with anginal equivalents. Cardiac monitoring blood pressure Q6 hours ,TSH, lipid profile, serial cardiac enzymes and cardiac stress test (2) Hypertensive urgency Is this a current diagnosis for this admission?: Yes Plan: Nitro paste applied and effective, Vasotec as needed (3) Obstructive sleep apnea Is this a current diagnosis for this admission?: Yes Plan: CPAP ordered, strongly recommend outpatient use (4) Morbid obesity with BMI of 45.0-49.9, adult Is this a current diagnosis for this admission?: Yes Plan: Evaluate TSH and dietitian consult (5) Venous stasis Is this a current diagnosis for this admission?: Yes Plan: Appears chronic however right greater than left will obtain venous Doppler given sharp nature of pain. VINAY valentine - Time Time Spent: 50 to 70 Minutes
[2017-04-10] MEDS: HEPARIN SOD (PORCINE) 5,000 UNIT/ML 1 ML SYRINGE SUBCUT SCH ×3 (06:13→23:11)
[2017-04-10] MEDS: ASPIRIN 81 MG TABLET, ENT COATED PO SCH (09:45)
[2017-04-10 10:45] LABS: TROPONIN I < 0.012 ng/mL
[2017-04-10] MEDS ORDERED: REGADENOSON INJ 0.4 MG/5 ML DISP.SYRIN IV ONE (11:00)
--- NOTE | 2017-04-10 11:37 | RADIOLOGY REPORT (SQ) ---
EXAM DESCRIPTION: VENOUS UNILATERAL LOWER COMPLETED DATE/TIME: 04/10/2017 11:05 am REASON FOR STUDY: R leg edema c chest pain COMPARISON: None. TECHNIQUE: Dynamic and static eastman scale and color images acquired of the right leg venous system. S elected spectral images acquired with additional compression and augmentation maneuvers. The contrala teral common femoral vein and saphenofemoral junction were also imaged. Images stored on PACS. LIMITATIONS: None. FINDINGS: RIGHT COMMON FEMORAL: Normal phasicity, compression and augmentation. No visualized echogenic material on g ray scale. No defects on color images. FEMORAL: Normal compression and augmentation. No visualized echogenic material on eastman scale. No defe cts on color images. POPLITEAL: Normal compression, augmentation. No visualized echogenic material on eastman scale. No defec ts on color images. CALF VESSELS: Normal compression, augmentation. No visualized echogenic material on eastman scale. No de fects on color images. GSV and SSV: Normal compression, augmentation. No visualized echogenic material on eastman scale. No def ects on color images. ANY DEEP VENOUS INSUFFICIENCY: Not evaluated. ANY EVIDENCE OF POPLITEAL CYST: No. OTHER: No other significant finding. LEFT COMMON FEMORAL VEIN AND SAPHENOFEMORAL JUNCTION: Normal phasicity, compression and augmentation. No visualized echogenic material on eastman scale. No de fects on color images. IMPRESSION: NO EVIDENCE OF DVT OR SVT IN THE RIGHT LEG. TECHNICAL DOCUMENTATION: JOB ID: [id number] [employer]- All Rights Reserved
--- NOTE | 2017-04-10 13:53 | PDOC PROGRESS REPORT ---
Subjective Progress Note for:: 04/10/17 Subjective:: Patient was seen on rounds. Just returned from the first part of his Cardiolite stress test. He will need to have a 2 day study due to his BMI. He states he is not happy about this. Reasoning was explained to the patient. Venous duplex of lower extremities were done which were negative for any DVT or SVT. He has had no further recurrent chest pain, shortness breath or dyspnea. He denies any nausea, vomiting, diarrhea or diarrhea. The remaining review of systems is negative. Physical Exam Vital Signs: Temp Pulse Resp BP Pulse Ox 98.3 F 74 19 146/92 H 99 04/10/17 11:44 04/10/17 11:44 04/10/17 11:44 04/10/17 11:44 04/10/17 11:44 Intake & Output 04/09/17 04/10/17 04/11/17 06:59 06:59 06:59 Intake Total 150 Output Total 800 Balance -650 Weight 174.2 kg General appearance: PRESENT: no acute distress, morbidly obese, well-developed, well-nourished Head exam: PRESENT: atraumatic, normocephalic Eye exam: PRESENT: conjunctiva pink, EOMI, PERRLA. ABSENT: scleral icterus Ear exam: PRESENT: normal external ear exam Mouth exam: PRESENT: moist, tongue midline Neck exam: ABSENT: carotid bruit, JVD, lymphadenopathy, thyromegaly Respiratory exam: PRESENT: clear to auscultation zack. ABSENT: rales, rhonchi, wheezes Cardiovascular exam: PRESENT: RRR. ABSENT: diastolic murmur, rubs, systolic murmur Pulses: PRESENT: normal dorsalis pedis pul Vascular exam: PRESENT: normal capillary refill GI/Abdominal exam: PRESENT: normal bowel sounds, soft. ABSENT: distended, guarding, mass, organolmegaly, rebound, tenderness Rectal exam: PRESENT: deferred Extremities exam: PRESENT: full ROM. ABSENT: calf tenderness, clubbing, pedal edema Musculoskeletal exam: PRESENT: ambulatory Neurological exam: PRESENT: alert, awake, oriented to person, oriented to place , oriented to time, oriented to situation, CN II-XII grossly intact. ABSENT: motor sensory deficit Psychiatric exam: PRESENT: appropriate affect, normal mood. ABSENT: homicidal ideation, suicidal ideation Skin exam: PRESENT: dry, intact, warm. ABSENT: cyanosis, rash Results Laboratory Results: 04/09/17 04/10/17 23:54 03:48 Triglycerides 237 H Cholesterol 151.58 LDL Cholesterol Direct 86 VLDL Cholesterol 47.4 H HDL Cholesterol 27 L Urine Color STRAW Urine Appearance CLEAR Urine pH 6.0 Ur Specific [place] 1.008 Urine Protein NEGATIVE Urine Glucose (UA) NEGATIVE Urine Ketones NEGATIVE Urine Blood NEGATIVE Urine Nitrite NEGATIVE Ur Leukocyte Esterase NEGATIVE Urine WBC (Auto) 0 Urine RBC (Auto) 1 04/10/17 04/10/17 04/10/17 03:48 03:48 09:55 Creatine Kinase 56 CK-MB (CK-2) 0.50 Troponin I < 0.012 < 0.012 Impressions: Chest X-Ray 04/09/17 17:46 IMPRESSION: REACTIVE AIRWAY DISEASE VERSUS VIRAL SYNDROME. NO CONSOLIDATION. Venous Doppler Study 04/10/17 00:00 IMPRESSION: NO EVIDENCE OF DVT OR SVT IN THE RIGHT LEG. Assessment & Plan - Diagnosis (1) Chest pain Qualifiers: Chest pain type: unspecified Qualified Code(s): R07.9 - Chest pain, unspecified Is this a current diagnosis for this admission?: Yes Plan: Troponins are all negative 3. EKG is unremarkable for any ischemic changes. Patient is noted to have periods of significant bradycardia when he sleeps. He does have history of obstructive sleep apnea. He does not wear CPAP because he cannot afford it. He will complete Cardiolite stress test tomorrow. Disposition will be dependent on the results of that. (2) Hypertensive urgency Is this a current diagnosis for this admission?: Yes Plan: Resolved with 1 dose of IV Lopressor (3) Morbid obesity with BMI of 45.0-49.9, adult Is this a current diagnosis for this admission?: Yes Plan: Patient was counseled on need for weight loss to decrease risk factors for CAD. (4) Obstructive sleep apnea Is this a current diagnosis for this admission?: Yes Plan: CPAP at hs. He can not afford machine for home (5) Venous stasis Is this a current diagnosis for this admission?: Yes Plan: Venous duplex is normal - Time Time Spent with patient: 25-34 minutes Critical Time spent with patient: 15-24 minutes Medications reviewed and adjusted accordingly: Yes Anticipated discharge: Home Within: within 24 hours
[2017-04-10 16:46] LABS: CREATINE KINASE MB 0.51 ng/mL (<4.55)
[2017-04-10 16:53] LABS: TROPONIN I < 0.012 ng/mL
[2017-04-11] MEDS: HEPARIN SOD (PORCINE) 5,000 UNIT/ML 1 ML SYRINGE SUBCUT SCH (05:53)
[2017-04-11] MEDS: ASPIRIN 81 MG TABLET, ENT COATED PO SCH (09:06)
[2017-04-11] MEDS ORDERED: LORATADINE 10 MG TABLET PO ONE (10:50)
--- NOTE | 2017-04-11 11:03 | PDOC DISCHARGE SUMMARY ---
General - Admit/Disc Date/PCP Admission Date/Primary Care Provider: 04/09/17 23:33 RIA TALLEY MD Discharge Date: 04/11/17 - Discharge Diagnosis (1) Chest pain Is this a current diagnosis for this admission?: Yes Summary: Resolved. Most likely (2) Hypertensive urgency Is this a current diagnosis for this admission?: Yes Summary: Resolved (3) Morbid obesity with BMI of 45.0-49.9, adult Is this a current diagnosis for this admission?: Yes Summary: Counseled on dietary modifications and exercise (4) Obstructive sleep apnea Is this a current diagnosis for this admission?: Yes Summary: CPAP (5) Venous stasis Is this a current diagnosis for this admission?: Yes Summary: Elevate lower extremities when sitting - Additional Information Resuscitation Status: Full Code Discharge Diet: Regular Discharge Activity: Activity As Tolerated, Balance Activity w/Rest Home Medications: No Home Medications 04/10/17 History of Present Illness Patient complains of: Chest pain History of Present Illness: KARLI APODACA is a 41 year old male with a past medical history of morbid obesity, obstructive sleep apnea, venous stasis and tobacco dependence. He has been in his usual state of health until approximately 30 minutes prior to presentation in the emergency room with an abrupt onset of 5 out of 5, nonradiating, sharp, retrosternal chest pain associated with shortness of breath occurred while standing up from his desk to go home from work. EMS was called and revealed a blood pressure of 210/124, he received aspirin and sublingual nitro and brought to the emergency room for evaluation where his pain was significantly reduced. Patient denies previous diagnosis of hypertension, exceptional anxiety, previous episode or new medication. His workup is otherwise unremarkable he is referred to the hospitalist for admission. Patient admits to noncompliance with CPAP secondary to financial barriers. Hospital Course Hospital Course: Patient was admitted to telemetry. He had serial troponins which were all negative. He had a two stage cardiolite stress test which was read as negative. He was noted to have periods of bradycardia when sleeping due to obstructive sleep apnea. He was placed on CPAP which improved the bradycardia. Patient has known history of obstructed sleep apnea and states he can't afford the copay for CPAP machine. He was counseled on risks of pulmonary hypertension. He will follow up with his PCP. Physical Exam Vital Signs: Temp Pulse Resp BP Pulse Ox 98.6 F 66 19 153/97 H 97 04/11/17 07:44 04/11/17 07:44 04/11/17 07:44 04/11/17 08:01 04/11/17 07:44 Intake & Output 04/10/17 04/11/17 04/12/17 06:59 06:59 06:59 Intake Total 150 2195 Output Total 800 550 Balance -650 1645 Weight 174.2 kg 174.4 kg General appearance: PRESENT: no acute distress, morbidly obese, well-developed, well-nourished Head exam: PRESENT: atraumatic, normocephalic Eye exam: PRESENT: conjunctiva pink, EOMI, PERRLA. ABSENT: scleral icterus Ear exam: PRESENT: normal external ear exam Mouth exam: PRESENT: moist, tongue midline Neck exam: ABSENT: carotid bruit, JVD, lymphadenopathy, thyromegaly Respiratory exam: PRESENT: clear to auscultation zack. ABSENT: rales, rhonchi, wheezes Cardiovascular exam: PRESENT: RRR. ABSENT: diastolic murmur, rubs, systolic murmur Pulses: PRESENT: normal dorsalis pedis pul Vascular exam: PRESENT: normal capillary refill GI/Abdominal exam: PRESENT: normal bowel sounds, soft. ABSENT: distended, guarding, mass, organolmegaly, rebound, tenderness Rectal exam: PRESENT: deferred Extremities exam: PRESENT: full ROM. ABSENT: calf tenderness, clubbing, pedal edema Neurological exam: PRESENT: alert, awake, oriented to person, oriented to place , oriented to time, oriented to situation, CN II-XII grossly intact. ABSENT: motor sensory deficit Psychiatric exam: PRESENT: appropriate affect, normal mood. ABSENT: homicidal ideation, suicidal ideation Skin exam: PRESENT: dry, intact, warm. ABSENT: cyanosis, rash Results Laboratory Results: 04/10/17 04/10/17 04/10/17 03:48 03:48 09:55 Creatine Kinase 56 CK-MB (CK-2) 0.50 Troponin I < 0.012 < 0.012 04/10/17 15:58 Creatine Kinase CK-MB (CK-2) 0.51 Troponin I < 0.012 Impressions: Chest X-Ray 04/09/17 17:46 IMPRESSION: REACTIVE AIRWAY DISEASE VERSUS VIRAL SYNDROME. NO CONSOLIDATION. Venous Doppler Study 04/10/17 00:00 IMPRESSION: NO EVIDENCE OF DVT OR SVT IN THE RIGHT LEG. Qualifiers PATEINT BEING DISCHARGED WITH ANY OF THE FOLLOWING DIAGNOSIS?: No Plan Discharge Plan: Home with family Time Spent: Less than 30 Minutes
[2017-04-11 11:52] VITALS: BP 150/99
[2017-04-12] MEDS ORDERED: FLUTICASONE NASAL SPRAY 50 MCG/SPRY 120 SPRAY/16 GM NASL SCH (10:00)
== END 2017-04-11 12:19 | disposition home or self-care (01) ==
LOC: ER 17:37 → EH 22:42 → UNDOADMOB 22:42 → EH 23:33 → 5 04-10 00:35
PROVIDERS: ADMIT Internal Medicine; ATTEND Internal Medicine
PROC: 5A09357 Assistance with Respiratory Ventilation, Less than 24 Consecutive Hours, Continuous Positive Airway Pressure (ICD-10-PCS; principal; 2017-04-10)
DX: R07.89 Other chest pain (principal); I16.0 Hypertensive urgency; E66.01 Morbid (severe) obesity due to excess calories; G47.33 Obstructive sleep apnea (adult) (pediatric); R00.1 Bradycardia, unspecified; I87.8 Other specified disorders of veins; F17.210 Nicotine dependence, cigarettes, uncomplicated; Z68.42 Body mass index [BMI] 45.0-49.9, adult; Z82.49 Family history of ischemic heart disease and other diseases of the circulatory system; Z71.3 Dietary counseling and surveillance; Z91.19 Patient's noncompliance with other medical treatment and regimen; Z59.9 Problem related to housing and economic circumstances, unspecified
CPT/HCPCS: 93005; 99285; 96374; 36415 ×2; 82553 ×2; 82550 ×2; 84443; 85025; 80053; 81001; 84484 ×2; 83036; 80061; 83880; 93971; 93017; 71010; 78452; 93010; 94660; G0378 ×2; A9500; J2785; J1644 ×2; J1940; J3490 ×3; Q9969

== ENCOUNTER → 2018-07-05 | Outpatient (CLI) | payer OTHER ==
[2018-07-05 09:09] LABS: ABSOLUTE BASOPHILS # (AUTO) 0.1 10^3/uL (0.0-0.2); ABSOLUTE EOSINOPHILS # (AUTO) 0.3 10^3/uL (0.0-0.6); ABSOLUTE LYMPHOCYTES (AUTO) 2.5 10^3/uL (0.5-4.7); ABSOLUTE MONOCYTES (AUTO) 0.8 10^3/uL (0.1-1.4); BASOPHILS % (AUTO) 0.6 % (0-2); EOSINOPHILS % (AUTO) 2.9 % (0-6); HEMATOCRIT 45.2 % (37.9-51.0); HEMOGLOBIN 15.4 g/dL (13.5-17.0); LYMPHOCYTES % (AUTO) 26.3 % (13-45); MEAN CORPUSCULAR HEMOGLOBIN 29.1 pg (27.0-33.4); MEAN CORPUSCULAR HGB CONC 34.1 g/dL (32.0-36.0); MEAN CORPUSCULAR VOLUME 85 fl (80-97); MONOCYTES % (AUTO) 7.8 % (3-13); PLATELET COUNT 273 10^3/uL (150-450); RED CELL DISTRIBUTION WIDTH 14.5 % (11.5-14.0); SEGMENTED NEUTROPHILS % (AUTO) 62.4 % (42-78); TOTAL CELLS COUNTED % (AUTO) 100 %; WHITE BLOOD COUNT 9.6 10^3/uL (4.0-10.5)
[2018-07-05 09:36] LABS: ALANINE AMINOTRANSFERASE 25 U/L (21-72); ALKALINE PHOSPHATASE 95 U/L (38-126); ANION GAP 11 (5-19); ASPARTATE AMINO TRANSFERASE 19 U/L (17-59); BILIRUBIN,DIRECT 0.4 mg/dL (0.0-0.4); BILIRUBIN,TOTAL 0.6 mg/dL (0.2-1.3); BLOOD UREA NITROGEN 13 mg/dL (7-20); CALCIUM 9.2 mg/dL (8.4-10.2); CARBON DIOXIDE 30 mmol/L (22-30); CHLORIDE 101 mmol/L (98-107); CHOLESTEROL 118.74 mg/dL (0-200); GLUCOSE 122 mg/dL (75-110); POTASSIUM 4.1 mmol/L (3.6-5.0); SODIUM 141.6 mmol/L (137-145); TOTAL PROTEIN 7.1 g/dL (6.3-8.2); TRIGLYCERIDES 336 mg/dL (<150)
[2018-07-05 09:47] LABS: DIRECT LDL 73 mg/dL (<100)
[2018-07-05 09:54] LABS: VLDL CHOLESTEROL 67.2 mg/dL (10-31)
[2018-07-05 11:24] LABS: FREE T4 (FREE THYROXINE) 1.5 ng/dL (0.78-2.19)
[2018-07-05 11:38] LABS: THYROID STIMULATING HORMONE 2.87 uIU/mL (0.47-4.68)
== END ==
LOC: OD 07:50
PROVIDERS: ATTEND Internal Medicine
DX: I25.10 Atherosclerotic heart disease of native coronary artery without angina pectoris (principal); I10 Essential (primary) hypertension; Z79.899 Other long term (current) drug therapy; R63.5 Abnormal weight gain
CPT/HCPCS: 36415; 80053; 80061; 84439; 84443; 85025

== ENCOUNTER → 2020-01-30 | Outpatient (CLI) | payer BC ==
[2020-01-30 13:57] VITALS: BP 119/64
--- NOTE | 2020-01-30 13:57 | ER RDC ASSESSMENT REPORT ---
Intake - In the Last 14 days Have you traveled outside [place]?: No Have you been in close contact with someone CONFIRMED: Yes Worked in Healthcare?: Yes - Symptoms Subjective Fever([place] feverish): No Chills: Yes Muscule Aches: No Runny Nose: No Sore Throat: No Cough (New or worsening chronic cough): No Shortness of breath: No Nausea or Vomiting: No Headache: No Abdominal Pain: No Diarrhea(3 or more loose stools in last 24 hours): No - Do you have any of the following Chronic lung disease: Asthma or emphysema or COPD: No Cystic Fibrosis: No Diabetes: Yes High Blood Pressure: No Cardiovascular Disease: No Chronic Kidney Disease: No Chronic Liver Disease: No Chronic blood disorder like Sickle Cell Disease: No Weak immune system due to disease or medication: No Neurologic condition that limits movement: No Developmental delay - Moderate to Severe: No Recent (within past 2 weeks) or current : No Morbid Obesity (>100 pounds over ideal weight): Yes - Objective Vital Signs: 6'3" 360 Temperature: 97.3 F Pulse Rate: 55 Respiratory Rate: 16 Blood Pressure: 119/64 O2 Sat by Pulse Oximetry: 97 Objective: Given above, testing performed: COVID Disposition: Home; Selfcare General - General Chief Complaint: Other Time Seen by Provider: 01/30/20 12:00 Mode of Arrival: Ambulatory Information source: Patient - HPI Notes: 44-year-old male presents to [facility] clinic for COVID-19 testing. Patient states he was referred over by employer who is requiring he be tested and come back negative before returning to work. 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 Patient reports only symptom being chills. Onset of symptoms 01/23/2020. Patient is denying any fever, myalgia, rhinorrhea, sore throat,'s cough, shortness of breath, nausea vomiting or diarrhea, headache, or abdominal pain. Patient does have medical history significant for diabetes and he is a current smoker 1 pack/day. - Related Data Allergies/Adverse Reactions: lidocaine [Lidocaine] Allergy (Severe, Verified 10/18/16 09:54) Hives procaine HCl [From Novocain] Allergy (Severe, Verified 10/18/16 09:54) Hives "-miguel" family Allergy (Uncoded 10/25/16 13:01) itching, swelling Home Medications: Lasix lisinopril metoprolol metformin atorvastatin Past Medical History - General Information source: Patient - Social History Smoking Status: Current Every Day Smoker Cigarette use (# per day): Yes - 20 Smoking Education Provided: Yes Family History: CAD - Patient's mother of a heart attack at age 49, DM, Hyperlipidemia - Past Medical History Cardiac Medical History: Reports: Hx Coronary Artery Disease, Hx Hypertension - in past-no meds Denies: Hx Heart Attack Pulmonary Medical History: Reports: None Denies: Hx Asthma, Hx Bronchitis, Hx COPD, Hx Pneumonia EENT Medical History: Reports: None Neurological Medical History: Reports: Hx Migraine. Denies: Hx Cerebrovascular Accident, Hx Seizures Endocrine Medical History: Reports: None Renal/ Medical History: Reports: None. Denies: Hx Peritoneal Dialysis Malignancy Medical History: Reports None GI Medical History: Reports: None Musculoskeletal Medical History: Reports None, Denies Hx Arthritis Skin Medical History: Reports None Psychiatric Medical History: Reports: None Traumatic Medical History: Reports: None Infectious Medical History: Reports: None Past Surgical History: Reports: Hx Cardiac Catheterization, Hx Cholecystectomy, Hx Orthopedic Surgery - right knee Physical Exam - General General appearance: Appears well In distress: None Notes: PHYSICAL EXAMINATION: GENERAL: Well-appearing and in no acute distress. HEAD: Atraumatic, normocephalic. EYES: sclera anicteric, conjunctiva are normal. ENT: nares patent. Moist mucous membranes. NECK: Normal range of motion, supple without lymphadenopathy LUNGS: CTAB and equal. No wheezes rales or rhonchi. HEART: Regular rate and rhythm without murmurs ABDOMEN: Soft, nontender, normal bowel sounds, no guarding. EXTREMITIES: Normal range of motion, no pitting edema. No cyanosis. NEUROLOGICAL: Cranial nerves grossly intact. Normal speech. PSYCH: Normal mood, normal affect. SKIN: Warm, Dry, normal turgor, no rashes or lesions noted Patient Education/Counseling Counseling/Education: Patient presents for Covid 19 testing. Patient does not have emergency worrying symptoms such as difficulty breathing, shortness of breath, chest pain, pressure, confusion or cyanosis. Patient appears suitable for discharge as vital signs are stable and patient is nontoxic in appearance. Good return precautions have been discussed with patient, patient verbalized understanding and is agreeable with discharge plan of care at this time. Guidance for worsening S/SX: As a person under investigation for Covid 19, the [place] department of Health and Human Services, division of public health advises you to adhere to the following guidance until your test results are reported to you. If your test result is positive, you will receive additional information from your provider and your local health department at that time. Remain at home until you are cleared by the health provider or public health authorities. Keep a log of visitors to your home, notify any visitors to your home of your isolation status. If you plan to move to a new address or leave the county, notify the local health department in your County. Call your doctor or seek care if you have an urgent medical need. Before seeking medical care, call ahead to get instructions from the provider before arriving at the medical office clinic or hospital. Notify them that you are being tested for the virus that causes Covid 19 so that arrangements can be made, as necessary, to prevent transmission to others in the healthcare setting. Next, notify the local health department in your county. If a medical emergency arises and you need to call 911, inform the first responders that you are being tested for the virus that causes Covid 19. Next, notify the local health department in your county. RDC Discharge - Discharge Clinical Impression: Encounter for screening laboratory testing for COVID-19 virus Condition: Good Disposition: Home; Selfcare
== END ==
LOC: RDC 10:54
PROVIDERS: ATTEND Registered Nurse
DX: Z20.828 Contact with and (suspected) exposure to other viral communicable diseases (principal); R68.83 Chills (without fever); I10 Essential (primary) hypertension; E11.9 Type 2 diabetes mellitus without complications; I25.10 Atherosclerotic heart disease of native coronary artery without angina pectoris; F17.210 Nicotine dependence, cigarettes, uncomplicated; E66.01 Morbid (severe) obesity due to excess calories; Z88.4 Allergy status to anesthetic agent; Z88.8 Allergy status to other drugs, medicaments and biological substances
CPT/HCPCS: 87635; C9803; 99201; 99211